=== PATIENT | female | born 1965 | race Caucasian/White ===

== ENCOUNTER 2021-03-30 10:51 | Emergency (ER) | payer OTHER ==
[~2021-03-30] VITALS: Ht 167.6 cm; Wt 74.8 kg
[2021-03-30 10:54] VITALS: BP 135/95
--- NOTE | 2021-03-30 11:08 | NUR ---
Patient to bed 11. RN evaluating the patient at bedside.
--- NOTE | 2021-03-30 11:10 | NUR ---
55 Y/O F BIB SELF FROM HOME, PATIENT PRESENTS TO ED WITH L HIP AND L GROIN PAIN THAT STARTED ON 03/18/21. PT STATES SHE MISSED A STEP ON THE CURB AND FELL ON HER L SIDE. DENIES HEAD INJURY OR LOC. DENIES N/V/D; SKIN IS PINK/WARM/DRY; AAOX4, SHOWED IMPROPER USE OF CRUTCHES ON ARRIVAL; LUNGS CLEAR BL; HR EVEN AND REGULAR; PT DENIES ANY FEVER, CP, SOB, OR COUGH AT THIS TIME; PATIENT STATES PAIN OF 10/10 AT THIS TIME; VSS; PATIENT POSITIONED FOR COMFORT; HOB ELEVATED; BEDRAILS UP X2; BED DOWN. ER MD MADE AWARE OF PT STATUS. PMH: HTN NKA MED: IBUPROFEN 800MG LAST DOSES 0 AND 629
[2021-03-30] MEDS: oxyCODONE/APAP 5/325 MG 1 TAB TAB PO ONE (11:25)
--- NOTE | 2021-03-30 11:26 | NUR ---
Patient taken to x-ray via wheelchair by tech.
--- NOTE | 2021-03-30 13:09 | NUR ---
RECEIVED REPORT FROM JEREMY ROA, FOR CONTINUITY OF CARE
--- NOTE | 2021-03-30 13:18 | NUR ---
Dr. Campos is reevaluating the patient at bedside.
--- NOTE | 2021-03-30 14:00 | NUR ---
PT IS TAKEN TO CT VIA WHEELCHAIR
--- NOTE | 2021-03-30 14:13 | NUR ---
PT TAKEN BACK TO BED [address]
[2021-03-30] MEDS ORDERED: IBUP-1842 PO (15:21)
[2021-03-30] MEDS ORDERED: METH750T5 PO (15:21)
--- NOTE | 2021-03-30 15:34 | NUR ---
Patient discharged with v/s stable. Written and verbal after care instructions given and explained. Patient alert, oriented and verbalized understanding of instructions. Ambulatory with steady gait. All questions addressed prior to discharge. ID band removed. Patient advised to follow up with PMD. Rx of IBUPROFEN AND METHACARBAMOL given. Patient educated on indication of medication including possible reaction and side effects. Opportunity to ask questions provided and answered.
[2021-03-30 15:36] VITALS: BP 135/95
== END 2021-03-30 15:34 | disposition home or self-care (01) ==
LOC: MED 10:51
DX: M25.552 Pain in left hip (principal); Z98.890 Other specified postprocedural states
CPT/HCPCS: 72170; 72192; 73700; 81002; 99285